=== PATIENT | female | born 1995 | race Two or more races ===

== ENCOUNTER 2017-12-28 13:12 | Outpatient (CLI) | payer MEDICAID | END 2017-12-28 15:55 | disposition home or self-care (01) | LOC: OBT 13:12 → L-D 13:12 → OBT 15:55 | DX: O62.9 Abnormality of forces of labor, unspecified (principal); Z3A.39 39 weeks gestation of pregnancy | CPT/HCPCS: 76818 ==

== ENCOUNTER 2018-01-02 17:47 | Inpatient (IN) | payer SELFPAY, MEDICAID ==
[2018-01-02] MEDS ORDERED: LIDOCAINE 1% (MPF) 30 ML INJ INJ (23:30)
[2018-01-02] MEDS ORDERED: MISOPROSTOL 200 MCG TAB PR (23:30)
[2018-01-02] MEDS ORDERED: IBUPROFEN 600 MG TAB PO (23:30)
[2018-01-02] MEDS ORDERED: CARBOPROST 250 MCG INJ IM (23:30)
[2018-01-02] MEDS ORDERED: OXYTOCIN 30 UNITS/LR 500 ML IV (23:30)
[2018-01-02] MEDS ORDERED: METHYLERGONOVINE 0.2 MG INJ IM (23:30)
[2018-01-03] MEDS ORDERED: MISOPROSTOL 100 MCG TAB PO
[2018-01-03] MEDS ORDERED: MINERAL OIL LIGHT 10 ML VIAL TOP
[2018-01-03] MEDS: LACTATED RINGER'S 1,000 ML IV* ×4 (01:26→16:14)
[2018-01-03] MEDS: AMPICILLIN 2 GM/NS (PMX) 100 ML IVPB (02:03)
[2018-01-03] MEDS: MISOPROSTOL 25 MCG CAPSULE PO ×6 (02:03→21:00)
[2018-01-03 03:02] LABS: ADD MAN DIFF? NO; BASOPHILS % 0.1 % (0.0-2.0); EOSINOPHILS # 0.1 10^3/ul (0.0-0.5); EOSINOPHILS % 1.4 % (0.0-7.0); HEMATOCRIT 34.9 % (37.0-47.0); HEMOGLOBIN 11.6 g/dl (12.0-16.0); LYMPHOCYTES % 27.2 % (15.0-51.0); MEAN CORPUSCULAR HEMOGLOBIN 28.4 pg (29.0-33.0); MEAN CORPUSCULAR HGB CONC 33.2 g/dl (32.0-37.0); MEAN CORPUSCULAR VOLUME 85.3 fl (82.0-101.0); MEAN PLATELET VOLUME 9.5 fl (7.4-10.4); MONOCYTE # 0.7 10^3/ul (0.3-0.9); NEUTROPHIL # 4.5 10^3/ul (1.6-7.5); PLATELET COUNT 184 10^3/UL (140-415); RED BLOOD COUNT 4.09 10^6/ul (4.20-5.40); RED CELL DISTRIBUTION WIDTH 13.6 % (11.5-14.5)
[2018-01-03 03:02] LABS: WHITE BLOOD COUNT 7.3 10^3/ul (4.8-10.8)
[2018-01-03 03:21] LABS: INR 0.93; PROTIME 12.6 Sec (11.9-14.9)
[2018-01-03 03:22] LABS: PARTIAL THROMBOPLASTIN TIME 26.8 Sec (25.0-35.0)
[2018-01-03] MEDS: AMPICILLIN 1 GM/NS (PMX) 50 ML IVPB ×5 (06:02→22:24)
[2018-01-03] MEDS ORDERED: TERBUTALINE 1 ML (06:23)
[2018-01-03] MEDS: TERBUTALINE 1 MG/ML INJ SC (06:24)
[2018-01-03] MEDS: DEXTROSE 5%-LR 1,000 ML IV ×2 (08:36→16:30)
[2018-01-03 12:20] LABS: AMPHETAMINE/METHAMPHETAMINE Negative (NEGATIVE); BARBITURATES Negative (NEGATIVE); BENZODIAZEPINES Negative (NEGATIVE); CANNABINOIDS Negative (NEGATIVE); COCAINE Negative (NEGATIVE); OPIATES Negative (NEGATIVE)
[2018-01-03] MEDS: NA PHOSPHATE/BIPHOS 133 ML ENEMA PR (14:03)
[2018-01-03] MEDS: BUTORPHANOL 2 MG INJ IV (14:43)
[2018-01-03 15:12] LABS: RAPID PLASMA REAGIN NONREACTIVE (NR)
[2018-01-03] MEDS ORDERED: FENTAnyl 2MCG/ML-ROPIV 0.2% 100 ML (16:02)
[2018-01-03] MEDS ORDERED: NALOXONE (0.4 MG/ML) INJ IV (16:30)
[2018-01-03] MEDS: FENTAnyl 2MCG/ML-ROPIV 0.2% 100 ML BAG EPI ×2 (20:34→23:01)
[2018-01-03] MEDS: OXYTOCIN 30 UNITS/LR 500 ML IV (22:26)
[2018-01-04] MEDS: OXYTOCIN 30 UNITS/LR 500 ML IV ×2 (00:30→00:31)
[2018-01-04] MEDS ORDERED: DEXTROSE 5%-LR 1,000 ML IV (01:08)
[2018-01-04] MEDS ORDERED: OXYCODONE/ASPIRIN (4.88/325) TAB PO (01:30)
[2018-01-04] MEDS ORDERED: DIPHENHYDRAMINE 50 MG INJ IV (01:30)
[2018-01-04] MEDS ORDERED: DIBUCAINE 1% 30 GM OINT PR (01:30)
[2018-01-04] MEDS ORDERED: CARBOPROST 250 MCG INJ IM (01:30)
[2018-01-04] MEDS ORDERED: ONDANSETRON 4 MG INJ IV (01:30)
[2018-01-04] MEDS ORDERED: ZOLPIDEM 5 MG TAB PO (01:30)
[2018-01-04] MEDS ORDERED: OXYTOCIN 30 UNITS/LR 500 ML IV (01:30)
[2018-01-04] MEDS ORDERED: ACETAMINOPHEN 325 MG TAB PO (01:30)
[2018-01-04] MEDS ORDERED: METHYLERGONOVINE 0.2 MG INJ IM (01:30)
[2018-01-04] MEDS ORDERED: MISOPROSTOL 200 MCG TAB PR (01:30)
[2018-01-04] MEDS: WITCH HAZEL/GLYCERIN PAD PR (04:29)
[2018-01-04] MEDS: LANOLIN 7 GM TUBE TOP (04:30)
[2018-01-04] MEDS: BENZOCAINE 20% 56 ML SPRAY TOP (04:30)
[2018-01-04] MEDS: LACTATED RINGER'S 1,000 ML IV* ×3 (04:30→17:08)
[2018-01-04] MEDS: IBUPROFEN 600 MG TAB PO ×3 (05:32→18:13)
[2018-01-04 20:01] LABS: ADD MAN DIFF? NO
[2018-01-04 20:03] LABS: BASOPHILS % 0.2 % (0.0-2.0); EOSINOPHILS # 0.2 10^3/ul (0.0-0.5); EOSINOPHILS % 1.5 % (0.0-7.0); HEMATOCRIT 32.6 % (37.0-47.0); HEMOGLOBIN 11.2 g/dl (12.0-16.0); LYMPHOCYTES % 20.3 % (15.0-51.0); MEAN CORPUSCULAR HEMOGLOBIN 29.3 pg (29.0-33.0); MEAN CORPUSCULAR HGB CONC 34.4 g/dl (32.0-37.0); MEAN CORPUSCULAR VOLUME 85.3 fl (82.0-101.0); MEAN PLATELET VOLUME 9.3 fl (7.4-10.4); MONOCYTE # 0.8 10^3/ul (0.3-0.9); MONOCYTES % 7.6 % (0.0-11.0); PLATELET COUNT 167 10^3/UL (140-415); RED BLOOD COUNT 3.82 10^6/ul (4.20-5.40); RED CELL DISTRIBUTION WIDTH 13.3 % (11.5-14.5)
[2018-01-04] MEDS: SENNA/DOCUSATE NA (8.6MG/50MG) TAB PO (20:44)
[2018-01-05] MEDS ORDERED: PRENATAL VITAMIN PO (09:00)
[2018-01-06] MEDS ORDERED: MEASLES,MUMPS,RUBELLA VACCINE INJ SC* (09:00)
[2018-01-06] MEDS ORDERED: DIPHTH/TET/ACEL PERTUSS (ADULT) 0.5 ML VIAL IM* (09:00)
== END 2018-01-04 23:00 | disposition home or self-care (01) | DRG 775 ==
LOC: OBT 17:47 → L-D 01-03 07:12 → PP1 01-04 02:09 → L-D 17:48 → OBT 23:15 → L-D 23:15
PROVIDERS: Obstetrics & Gynecology
PROC: 10E0XZZ Delivery of Products of Conception, External Approach (ICD-10-PCS; principal; 2018-01-02)
PROC: 0W8NXZZ Division of Female Perineum, External Approach (ICD-10-PCS; 2018-01-02)
DX: O48.0 Post-term pregnancy (principal); Z3A.40 40 weeks gestation of pregnancy; Z37.0 Single live birth
CPT/HCPCS: 62319; 76815; 76818; 80307; 85025; 85610; 85730; 86592; 86850; 86900; 86901